=== PATIENT | female | born 1990 | race Caucasian/White ===

== ENCOUNTER 2021-05-14 10:51 | Emergency (ER) | payer OTHER ==
[~2021-05-14] VITALS: Ht 165.1 cm; Wt 58.5 kg
[2021-05-14 10:56] VITALS: BP 119/64
[2021-05-14 11:20] VITALS: BP 112/82
--- NOTE | 2021-05-14 11:42 | NUR ---
DI COLLECTED AND HANDED TO RESEARCH SCHOLAR JORY
--- NOTE | 2021-05-14 11:49 | NUR ---
PT WAS WHEELCHAIR ASSISTED TO IMAGING AT THIS TIME.
[2021-05-14 12:44] LABS: BILIRUBIN,URINE NEGATIVE (NEGATIVE); BLOOD, URINE 3+ (NEGATIVE); COLOR,URINE YELLOW (YELLOW); LEUKOCYTE ESTERASE ,URINE TRACE (NEGATIVE); NITRITE, URINE NEGATIVE (NEGATIVE); UGLUCOSE NEGATIVE (NEGATIVE)
[2021-05-14 12:48] LABS: BASOPHILS % (AUTO) 1.1 % (0.0-2.0); HEMOGLOBIN 14.2 g/dL (12.0-16.0); LYMPHOCYTES # (AUTO) 1.1 K/uL (2.5-16.5); LYMPHOCYTES % (AUTO) 26.2 % (20.5-51.1); MEAN CORPUSCULAR HEMOGLOBIN 32 pg (27-31); MEAN CORPUSCULAR HGB CONC 33 g/dL (33-37); MEAN CORPUSCULAR VOLUME 96.9 fL (80-94); MONOCYTES # (AUTO) 0.4 K/uL (0.8-1.0); MONOCYTES % (AUTO) 9.6 % (1.7-9.3); NEUTROPHILS # (AUTO) 2.7 K/uL (1.8-7.7); NEUTROPHILS % (AUTO) 62.1 % (42.2-75.2); PLATELET COUNT (AUTO) 236 K/uL (140-450); RED BLOOD CELL COUNT(AUTO) 4.44 MIL/uL (4.20-5.40); RED CELL DISTRIBUTION WIDTH 13.1 % (11.6-13.7); WHITE BLOOD COUNT (AUTO) 4.4 K/uL (4.8-10.8)
[2021-05-14 13:47] LABS: RBC,URINE 50-80 /HPF (0-5); WBC,URINE 0-5 /HPF (0-5)
[2021-05-14 13:48] LABS: APPEARANCE,URINE SLIGHTLY HAZY (CLEAR)
--- NOTE | 2021-05-14 14:16 | NUR ---
30 Y/O F BIB SELF FROM HOME, C/O 3 DAYS OF VAGINAL SPOTTING, YESTERDAY PT STATES SHE STARTED HAVING HEAVY FLOW WITH CLOTS. THIS MORNING, PT STATES BLEEDING IS MODERATE AT THIS TIME. DENIES PAIN, CP, SOB, FEVERS, COUGH, N/V/D. DENIES DYSURIA. SKIN IS PINK/WARM/DRY; AAOX4 WITH EVEN AND STEADY GAIT; LUNGS CLEAR BL; HR EVEN AND REGULAR; PT DENIES ANY FEVER, CP, SOB, OR COUGH AT THIS TIME; PATIENT STATES PAIN OF 0/10 AT THIS TIME; VSS; PATIENT POSITIONED FOR COMFORT; HOB ELEVATED; BEDRAILS UP X2; BED DOWN. ER MD MADE AWARE OF PT STATUS. PMH: DENIES NKA MED: DENIES 3G 0T 0P 1A 1L
--- NOTE | 2021-05-14 14:16 | NUR ---
Patient discharged with v/s stable. Written and verbal after care instructions given and explained. Patient verbalized understanding. Ambulatory with steady gait. All questions addressed prior to discharge. Advised to follow up with PMD.
[2021-05-14 14:17] VITALS: BP 112/82
== END 2021-05-14 14:16 | disposition home or self-care (01) ==
LOC: MED 10:51
DX: O20.8 Other hemorrhage in early pregnancy (principal); Z3A.01 Less than 8 weeks gestation of pregnancy
CPT/HCPCS: 36415; 76801; 81001; 81025; 84702; 85025; 86900; 86901; 99284

== ENCOUNTER 2021-05-17 07:22 | Emergency (ER) | payer OTHER ==
[~2021-05-17] VITALS: Ht 165.1 cm; Wt 58.1 kg
[2021-05-17 07:28] VITALS: BP 116/69
--- NOTE | 2021-05-17 07:42 | NUR ---
BIB SELF FOR follow up for HCG LEVEL. SEEN HERE 05/14/21 FOR [facility], [facility]. C/O VAGINAL BLEEDING X 4 DAYS BUT WITH NO PAIN. LMP 03/31/21. PATIENT AAOX4. VSS. PMH: DENIES NKA
--- NOTE | 2021-05-17 07:44 | NUR ---
BHARGAV FERRIS AT BEDSIDE FOR EXAMINATION
[2021-05-17 09:34] VITALS: BP 107/66
--- NOTE | 2021-05-17 09:34 | NUR ---
Patient discharged with v/s stable. Written and verbal after care instructions given and explained. Patient verbalized understanding. Ambulatory with steady gait. ID band removed. All questions addressed prior to discharge. Advised to follow up with PMD.
== END 2021-05-17 09:34 | disposition home or self-care (01) ==
LOC: MED 07:22
DX: O03.9 Complete or unspecified spontaneous abortion without complication (principal)
CPT/HCPCS: 36415; 84702; 99283